=== PATIENT | female | born 1995 ===

== ENCOUNTER 2021-04-28 11:49 | Outpatient (CLI) | payer MEDICAID ==
[2021-04-28 14:27] VITALS: BP 105/65
[2021-04-28 14:55] LABS: Bacteria,Urine 2+ /HPF (Negative); Bilirubin,Urine NEG (Negative); Blood,Urine NEG (Negative); Color,Urine Yellow (Yellow); Mucus,Urine FEW /HPF; Protein,Urine <15 mg/dL mg/dL (Negative)
[2021-04-28] MEDS ORDERED: LACTATED RINGERS 500 ML IV ONE (15:00)
== END 2021-04-28 14:59 | disposition home or self-care (01) ==
LOC: TRG 11:49 → APU 11:51 → TRG 14:59
PROVIDERS: ATTEND Obstetrics & Gynecology
DX: Z34.92 Encounter for supervision of normal pregnancy, unspecified, second trimester (principal); Z3A.24 24 weeks gestation of pregnancy
CPT/HCPCS: 59025; 81001